=== PATIENT | male | born 1995 | race Caucasian/White ===

== ENCOUNTER 2023-12-11 11:04 | Day surgery (SDC) | payer OTHER ==
[2023-12-09 13:47] VITALS: BMI 28.5
[2023-12-11 11:30] VITALS: RESP 16
[2023-12-11 12:06] VITALS: TEMP 97.1
[2023-12-11 12:17] VITALS: BP 101/70; PULSE 68
== END 2023-12-11 12:24 | disposition home or self-care (01) ==
LOC: FASU-ENDO 11:04
PROVIDERS: ATTEND Internal Medicine Gastroenterology
PROC: 0DB68ZX Excision of Stomach, Via Natural or Artificial Opening Endoscopic, Diagnostic (ICD-10-PCS; 2023-12-11)
PROC: 0DB48ZX Excision of Esophagogastric Junction, Via Natural or Artificial Opening Endoscopic, Diagnostic (ICD-10-PCS; 2023-12-11)
PROC: 0DB98ZX Excision of Duodenum, Via Natural or Artificial Opening Endoscopic, Diagnostic (ICD-10-PCS; principal; 2023-12-11 11:47)
DX: K29.50 Unspecified chronic gastritis without bleeding (principal); K20.90 Esophagitis, unspecified without bleeding
CPT/HCPCS: 88305-TC; 88342-TC